=== PATIENT | female | born 1950 | race Caucasian/White ===

== ENCOUNTER 2018-05-21 07:07 | Day surgery (SDC) | payer MEDICARE ==
[~2018-05-21 07:07] MED LIST: ACETAMINOPHEN 1,000 MG/100 ML BTL IV ONE; CEFAZOLIN 2 Gram 2 GM/50 ML BAG IVPB ONE
[2018-05-21] MEDS ORDERED: EPHEDRINE SULFATE 50 MG/ML ML IV ONE (07:08)
[2018-05-21] MEDS ORDERED: DEXAMETHASONE 4 MG/ML 1ML VIAL IVP ONE (07:08)
[2018-05-21] MEDS ORDERED: BUPIVACAINE 0.5% W/EPI MPF 30 ML VIAL IVP ONE (07:08)
[2018-05-21] MEDS ORDERED: BUPIVACAINE 0.5% (5MG/ML) PF 30ML VIAL IVP ONE (07:08)
[2018-05-21] MEDS ORDERED: PROPOFOL 10 MG/ML VIAL IV ONE (07:08)
[2018-05-21] MEDS ORDERED: MIDAZOLAM HCL 2MG/2ML VIAL IV ONE (07:08)
[2018-05-21] MEDS ORDERED: DESFLURANE 240 ML BTL INH ONE (07:08)
[2018-05-21] MEDS ORDERED: FENTANYL PF 100MCG/2ML VIAL IV ONE (07:08)
[2018-05-21] MEDS ORDERED: LIDOCAINE 2% MDV (20MG/ML) 20ML VIAL IV ONE (07:08)
[2018-05-21] MEDS ORDERED: BUPIVACAINE LIPOSOME/PF 133MG/10ML VIAL IV ONE (07:08)
[2018-05-21 07:40] LABS: BLOOD UREA NITROGEN 11 mg/dL (8-23); CREATININE 0.5 mg/dL (0.5-0.9); EST GLOMERULAR FILTRATION RATE > 60 mL/min; GLUCOSE,RANDOM 108 mg/dL (74-109)
--- NOTE | 2018-05-23 17:12 | Operative Note ---
DATE OF SURGERY: 05/21/18 PREOPERATIVE DIAGNOSIS: IMPINGEMENT SYNDROME, LEFT SHOULDER. POSTOPERATIVE DIAGNOSES: 1. SMALL TEAR OF THE ROTATOR CUFF. 2. PROFOUND EXTERNAL IMPINGEMENT. 3. ARTHROSIS, LEFT DISTAL CLAVICLE. 4. COMPLEX GLENOHUMERAL LABRAL TEAR. 5. SMALL ANTERIOR LABRAL TEAR. 6. SYNOVITIS. PROCEDURE: 1. REPAIR OF A CHRONICALLY TORN LEFT ROTATOR CUFF TEAR. 2. LEFT SHOULDER ARTHROSCOPY WITH SYNOVECTOMY. 3. LEFT SHOULDER ARTHROSCOPY WITH INTRAARTICULAR DEBRIDEMENT. 4. LEFT SHOULDER OPEN ACROMIOPLASTY, CA LIGAMENT RESECTION SUBACROMIAL BURSECTOMY. 4. LEFT SHOULDER DISTAL CLAVICLE RESECTION. STAFF SURGEON: BETO FLETCHER M.D. ANESTHESIA: GENERAL. PREPARATION: CHLORAPREP. INDIVIDUAL CONSIDERATIONS: NONE. PROCEDURE: The patient was taken to the Operating Room and placed supine on the operating table. She had a successful induction of a general anesthetic. She was then placed in a semi-seated beach chair position and her left arm and shoulder were prepped and draped in the usual fashion. The patient had a posterior portal identified for arthroscopy. Examination under anesthesia showed no instability. An 18-gauge spinal needle was then placed inside the joint and the joint was inflated with normal saline with a 60 mL syringe. A stab wound was made and a blunt-tipped trocar for the scope was placed in the joint and the joint was inflated with normal saline. An anterior accessory portal was then made just inferior to the intact long head of the biceps tendon in a retrograde fashion with a Wissinger pamella. The joint was irrigated out. The patient had a flap tear involving the anterior aspect of the labrum and also extending superiorly but the long head attachment was intact and these unstable areas were debrided. The glenohumeral joint looked normal. The rotator cuff underneath looked contused but normal. There was synovitis underneath the cuff superiorly and some synovitis in the pouch and this was all debrided with a shaver. The joint was irrigated out and the portals were closed with miya. The patient had an anterior approach to the subacromial space and distal clavicle. The skin was again infiltrated with 0.5% Marcaine with Epinephrine prior. Sharp dissection was carried down through the skin and subcutaneous tissue. Small veins were coagulated with a Bovie. An anterior deltoid interval was developed and care was taken not to split the deltoid more than about 4 cm distal to the anterior tip of the acromion to prevent injury to the axillary nerve. Once in the subacromial space, there was a yoo of fluid consistent with a tear. The patient had a very tight subacromial space and an anterior spur. Deltoid was then taken subperiosteally off the anterior aspects of the acromion , over the top of the intact CA ligament, and off the anterior aspect of the degenerative distal clavicle. CA ligament was resected with a Bovie. Distal clavicle was resected with an oscillating saw taking about a centimeter. The patient had a downsloping acromion and spurring and an anterior acromioplasty was performed taking about 5-6 mm because she is diminutive and a tapering to wedge posteromedially to include the spurs of the AC joint. The undersurface was then smoothed off with a rasp. The patient had a very thick bursa, which was debrided out. I now had a good look at the rotator cuff. She had a pinhole tear near the distal clavicle and near the supraspinatus insertion and it looked contused and almost looked like it had been beaten with a hammer but there was no distinct tear. It looked like the anterior spur of the acromion was rubbing on this. I went ahead and fixed the pinhole tear with a buried knot of 0 Vicryl. The remainder of it looked intact. After irrigation, I went ahead and injected the joint itself with 5 mL of 0.5% Marcaine with Epinephrine and 40 mg of DepoMedrol through a sterile 25-gauge needle. I then reattached the deltoid to the remaining acromion with multiple interrupted #2 Vicryl going directly through the bony acromion. The periosteal cuff and distal clavicle were closed with running #2 Vicryl. The anterior deltoid interval was closed with running #1 Vicryl. The subcut was closed with 2-0+ Vicryl, and the skin was closed with running 3-0 Quill. I then injected about 15 mL of 0.5% Marcaine with Epinephrine along with the remaining 10 mg of Morphine into the subacromial space through a sterile 18-gauge needle and a sterile Bulkee compressive dressing was applied. The patient tolerated the procedures well. Needle and sponge counts were correct. Estimated blood loss was minimal and she was taken back to Recovery in good condition. There were no complications. JOB NUMBER: [id number] MTDD
== END 2018-05-21 12:10 | disposition home or self-care (01) ==
LOC: SUR 07:07
PROVIDERS: ATTEND Orthopaedic Surgery
DX: M75.102 Unspecified rotator cuff tear or rupture of left shoulder, not specified as traumatic (principal); S43.432A Superior glenoid labrum lesion of left shoulder, initial encounter; S43.492A Other sprain of left shoulder joint, initial encounter; M65.812 Other synovitis and tenosynovitis, left shoulder; M19.012 Primary osteoarthritis, left shoulder; I10 Essential (primary) hypertension; I25.2 Old myocardial infarction; E11.9 Type 2 diabetes mellitus without complications; Z95.811 Presence of heart assist device
CPT/HCPCS: 76942; 80048; C9290